=== PATIENT | female | born 2000 | race Caucasian/White ===

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

== ENCOUNTER 2020-03-26 15:22 | Emergency (ER) | payer BC, MEDICAID ==
[~2020-03-26] VITALS: Ht 157.5 cm; Wt 52.2 kg
--- NOTE | 2020-03-26 16:05 | NUR ---
ON & OFF HEART RACING X "FOR MONTHS" ASSOCIATED WITH SHORTNESS OF BREATH. PATIENT A/OX4, BREATHING EVEN AND UNLABORED, NO SOB NOTED. DENIES CHEST PAIN AT THIS TIME. NEEDS ATTENDED, ATTACHED TO THE KITCHEN HELPER.
--- NOTE | 2020-03-26 17:00 | NUR ---
PATIENT RESTING, NO DISTRESS NOTED, VSS.
[2020-03-26 17:06] LABS: BASOPHILS % (AUTO) 0.6 % (0.0-2.0); EOSINOPHILS % (AUTO) 2.1 % (0.0-6.0); HEMATOCRIT 37 % (33-45); HEMOGLOBIN 12.5 g/dL (11.5-14.8); LYMPHOCYTES # (AUTO) 1.6 /CMM (0.8-4.8); LYMPHOCYTES % (AUTO) 27.5 % (20.0-44.0); MEAN CORPUSCULAR HGB CONC 34 g/dl (31.0-36.0); MEAN CORPUSCULAR VOLUME 96 fL (82-100); MONOCYTES # (AUTO) 0.4 /CMM (0.1-1.30); MONOCYTES % (AUTO) 6.6 % (2.0-12.0); NEUTROPHILS # (AUTO) 3.8 /CMM (1.8-8.9); NEUTROPHILS % (AUTO) 63.2 % (43.0-81.0); PLATELET COUNT (AUTO) 223 /CMM (150-450); RED BLOOD CELL COUNT(AUTO) 3.83 MIL/uL (4.0-5.2)
[2020-03-26 17:37] LABS: CALCIUM, SERUM 8.7 mg/dL (8.5-10.1); CREATININE 0.7 mg/dL (0.6-1.3)
[2020-03-26 18:04] VITALS: BP 104/66
== END 2020-03-26 18:04 | disposition home or self-care (01) ==
LOC: ER 15:26
DX: R00.2 Palpitations (principal); R06.02 Shortness of breath
CPT/HCPCS: 36415; 71045-TC; 80048-TC; 85025-TC